=== PATIENT | female | born 1935 | race Caucasian/White ===

== ENCOUNTER → 2016-12-12 | Outpatient (CLI) | payer MEDICARE ==
--- NOTE | 2016-12-12 15:12 | PCVCIMAG ---
APPROVED REPORT Indications Stenosis Syncope History of Smoking Risk Factors Diabetes Doppler Spectral Velocity Analysis PSV / EDVPSV / EDV ECA (R) 187 / 0 cm/sECA (L) 301 / 0 cm/s dICA (R) 62 / 11 cm/sdICA (L) 76 / 14 cm/s Jason (R) 114 / 17 cm/smICA (L) 131 / 11 cm/s pICA (R) 103 / 12 cm/spICA (L) 129 / 0 cm/s Bulb (R) 73 / 5 cm/sBulb (L) 86 / 7 cm/s dCCA (R) 66 / 10 cm/sdCCA (L) 78 / 11 cm/s mCCA (R) 79 / 8 cm/smCCA (L) 80 / 10 cm/s Vert (R) 75 / 6 cm/sVert (L) 82 / 16 cm/s ICA/CCA 1.73ICA/CCA 1.68 Basic Measurements Blood Pressure: Pulses: Right Left RightLeft Brachial(Sitting) 124/01quIv133/66mmHgTemporal Real Time B-Mode Imaging Vert. (R)AntegradeVert. (L)Antegrade Findings The right carotid bulb has moderate calcified plaque. The right proximal internal carotid artery shows <40% stenosis. The right common carotid artery shows no significant stenosis. The right external carotid artery shows >50% stenosis. The left carotid bulb has moderate calcified plaque. The left proximal internal carotid artery shows 40-50% stenosis. The left common carotid artery shows no significant stenosis. The left external carotid artery shows >90% stenosis. Conclusion 1. Right internal carotid stenosis (<40%) 2. Left internal carotid artery st[place] (40-50%) 3. Antegrade vertebral flow
== END | disposition home or self-care (01) ==
LOC: PCVCIMAG 13:44
PROVIDERS: ATTEND Internal Medicine
DX: I65.23 Occlusion and stenosis of bilateral carotid arteries (principal); I10 Essential (primary) hypertension; E11.9 Type 2 diabetes mellitus without complications; E78.5 Hyperlipidemia, unspecified; E03.9 Hypothyroidism, unspecified; Z79.4 Long term (current) use of insulin; Z79.899 Other long term (current) drug therapy; Z79.84 Long term (current) use of oral hypoglycemic drugs; Z87.891 Personal history of nicotine dependence
CPT/HCPCS: 80061; 93880; G0463

== ENCOUNTER → 2017-08-29 | Outpatient (CLI) | payer MEDICARE | END | disposition home or self-care (01) | LOC: PCVCCLINIC 11:27 | DX: I10 Essential (primary) hypertension (principal); R55 Syncope and collapse; E78.5 Hyperlipidemia, unspecified; I65.23 Occlusion and stenosis of bilateral carotid arteries; E11.9 Type 2 diabetes mellitus without complications; R94.31 Abnormal electrocardiogram [ECG] [EKG]; Z79.899 Other long term (current) drug therapy; Z79.84 Long term (current) use of oral hypoglycemic drugs; Z87.891 Personal history of nicotine dependence | CPT/HCPCS: 80061; 93005; G0463 ==